=== PATIENT | male | born 1945 ===

== ENCOUNTER 2018-08-30 19:23 | Inpatient (IN) | payer MEDICARE, BC ==
[~2018-08-30] VITALS: Ht 190.5 cm; Wt 111.1 kg
[2018-08-30] MEDS ORDERED: Z GUARD REMEDY PASTE 57 GM TUBE TOP PRN (19:45)
[2018-08-30] MEDS ORDERED: ACET-2154 PO (19:55)
[2018-08-30] MEDS ORDERED: ZOLP5TAB2 PO (19:56)
[2018-08-30] MEDS ORDERED: CITA20TA19 PO (19:56)
[2018-08-30] MEDS ORDERED: LACT-246 PO (19:56)
[2018-08-30] MEDS ORDERED: OXYB5TAB11 PO (19:56)
[2018-08-30] MEDS ORDERED: PRED20TA PO (19:56)
[2018-08-30] MEDS ORDERED: HYDR-3326 PO (19:56)
[2018-08-30] MEDS ORDERED: MAG-55 PO (19:56)
[2018-08-30] MEDS ORDERED: MAGN400O6 PO (19:56)
[2018-08-30 20:00] VITALS: BP 103/49
--- NOTE | 2018-08-30 22:01 | NUR ---
Admitting this 73 y/o male from [facility] with diagnosis of COPD Exacerbation. AAO x 4, verbally responsive and able to make needs known. Denies pain or discomfort at this time. Breathing even and unlabored, no SOB or CP noted. Lungs clear to auscultation. Routine admission care done. Oriented to room and unit. Provided with urinal and bedside commode per pt's request. MRSA swab done and sent to lab. Skin intact, warm and dry to touch. Dr. Jimenez aware of pt admission. Paged MD Malik for med recon ([phone]), awaiting call back. All safety measures and fall precautions maintained. Call light and all personal belongings within reach. Will continue to monitor.
[2018-08-31 04:30] VITALS: BP 133/49
[2018-08-31 07:00] VITALS: BP 125/64
--- NOTE | 2018-08-31 09:14 | NUR ---
Received pt. on bed, comfortable in no distress. A/OX3 verbally responsive and able to make his needs known. Denies CP or SOB, tolerating 2LPM via NC, SpO2: 98%. All due medications administered as ordered and tolerated well. All pt. needs attended and met promptly. Safety measures in place. Call light and all frequently used items within pt. reach.
[2018-08-31] MEDS ORDERED: HYDROCODONE/APAP 5-325MG TABLET PO PRN (11:30)
[2018-08-31] MEDS ORDERED: MAGNESIUM HYDROXIDE 30 ML LIQUID UDC PO PRN (11:30)
[2018-08-31] MEDS ORDERED: ZOLPIDEM 5 MG TABLET PO PRN (11:30)
[2018-08-31] MEDS ORDERED: predniSONE 20 MG TABLET PO ONE (12:00)
[2018-08-31] MEDS: OXYBUTYNIN CHLORIDE 5 MG TABLET PO SCH ×2 (12:31→16:22)
[2018-08-31 16:03] VITALS: BP 110/59
[2018-08-31] MEDS: CITALOPRAM 20 MG TABLET PO SCH (16:22)
[2018-08-31] MEDS: ACETAMINOPHEN 325 MG TABLET PO PRN (16:23)
--- NOTE | 2018-08-31 18:25 | NUR ---
End of shift note: No significant change during this shift. No sign of acute distress or SOB was noted. Kept pt clean and dry throughout this shift. Safety measures maintained. All needs attended and met promptly. Bed in low position, brake on, side rails up x2 as an enabler. Call light and all frequently used items within pt. reach. Will endorse to next shift accordingly
--- NOTE | 2018-08-31 19:25 | NUR ---
Patient alert and oriented x 3-4. No C/O distress or SOB. On 2L of O2. Patient C/O pain in left toe. Loan Approver consult made. Side rails up bilaterally for safety. Call light and frequently used items within reach. Will continue to monitor.
[2018-08-31 19:59] VITALS: BP 137/70
[2018-08-31] MEDS: DOCUSATE SODIUM 100 MG CAPSULE PO SCH (20:19)
[2018-09-01 05:00] VITALS: BP 127/69
--- NOTE | 2018-09-01 06:49 | NUR ---
Patient slept on and off throughout the night. All due medications given-tolerated well. Urinal emptied multiple times during shift. Side rails up bilaterally for safety. Call light and frequently used items within reach. Will endorse to oncoming shift accordingly.
[2018-09-01 07:28] LABS: BASOPHILS % (AUTO) 0.7 % (0.0-2.0); EOSINOPHILS # (AUTO) 0.1 K/uL (0.0-0.7); EOSINOPHILS % (AUTO) 0.9 % (0.0-7.0); HEMATOCRIT 30.8 % (36.7-47.1); HEMOGLOBIN 9.9 g/dL (12.5-16.3); LYMPHOCYTES # (AUTO) 1.8 K/uL (20.0-40.0); LYMPHOCYTES % (AUTO) 32.4 % (20.5-51.5); MEAN CORPUSCULAR HEMOGLOBIN 28.7 uug (23.8-33.4); MEAN CORPUSCULAR HGB CONC 32 g/dL (32.5-36.3); MEAN CORPUSCULAR VOLUME 89.2 fL (73.0-96.2); MONOCYTES # (AUTO) 0.5 K/uL (2.0-10.0); MONOCYTES % (AUTO) 8.4 % (0.0-11.0); NEUTROPHILS # (AUTO) 3.2 K/uL (1.8-8.9); NEUTROPHILS % (AUTO) 57.6 % (38.5-71.5); PLATELET COUNT (AUTO) 115 K/uL (152-348); RED BLOOD CELL COUNT(AUTO) 3.45 MIL/uL (4.06-5.63); WHITE BLOOD COUNT (AUTO) 5.5 K/uL (3.6-10.2)
[2018-09-01 07:39] LABS: IRON, SERUM 43 ug/dL (50-175)
[2018-09-01 07:48] VITALS: BP 128/70
[2018-09-01 08:09] LABS: THYROID STIMULATING HORMONE 2.614 mIU/mL (0.358-3.740)
[2018-09-01 08:16] LABS: ALANINE AMINOTRANSFERASE 11 U/L (16-63); ALKALINE PHOSPHATASE 40 U/L (50-136); ASPARTATE AMINOTRANSFERASE 14 U/L (15-37); BILIRUBIN,TOTAL 0.2 mg/dL (0.2-1.0); CARBON DIOXIDE 28 mmol/L (21-32); CHLORIDE 109 mmol/L (98-107); CHOLESTEROL 147 mg/dL (<200); CREATININE 1.4 mg/dL (0.6-1.3); GLUCOSE 81 mg/dL (74-106); HDL CHOLESTEROL 44 mg/dL (40-60); MAGNESIUM 2.1 mg/dL (1.8-2.4); PHOSPHOROUS 3.9 mg/dL (2.5-4.9); POTASSIUM 4.4 mmol/L (3.5-5.1); TOTAL PROTEIN, SERUM 6.2 g/dL (6.4-8.2); TRIGLYCERIDES 49 MG/DL (30-150); UREA NITROGEN, BLOOD 28 mg/dL (7-18); URIC ACID 5.1 mg/dL (3.5-7.2)
[2018-09-01] MEDS: CITALOPRAM 20 MG TABLET PO SCH ×2 (08:43→16:26)
[2018-09-01] MEDS: predniSONE 10 MG TABLET PO SCH (08:43)
[2018-09-01] MEDS: OXYBUTYNIN CHLORIDE 5 MG TABLET PO SCH ×3 (08:43→16:26)
[2018-09-01] MEDS ORDERED: predniSONE 20 MG TABLET PO SCH (09:00)
--- NOTE | 2018-09-01 12:57 | NUR ---
Patient continue therapy for ambulation, ADL, transfer and muscle weakness. not in distress. EKG done. relayed result to MD Smith with no new order. no complaint of pain/discomfort noted. will continue monitor
--- NOTE | 2018-09-01 15:09 | NUR ---
Patient verbalize with social media developer that he wants to talk to social media developer regarding change of anti depressant medication due to possible side effect. the bond underwriter confirmed with the patient, MD Smith notified, MD Bautista ( psychiatrist) aware. will continue monitor
[2018-09-01 16:27] VITALS: BP 126/65
--- NOTE | 2018-09-01 16:50 | NUR ---
Refrigeration Service Inspector assessment completed today.
--- NOTE | 2018-09-01 17:38 | NUR ---
Patient seen and examined by MD Batuista ( Psych) with ordered change citalopram to Escitalopram 10mg. Addendum: 09/01/18 at 4384 by SUSANNE KNUTSON RN RN Change anti depression requested by Patient
[2018-09-01] MEDS: DOCUSATE SODIUM 100 MG CAPSULE PO SCH (20:10)
[2018-09-01] MEDS: ESCITALOPRAM OXALATE 10 MG TABLET PO SCH (20:10)
[2018-09-01 20:35] VITALS: BP 117/56
--- NOTE | 2018-09-01 20:52 | NUR ---
Patient alert and oriented x 3-4. No C/O distress or SOB. On 2L of O2. Urinal emptied. First dose of 20 mg Lexapro given. Tolerated well. Side rails up bilaterally for safety. Call light and frequently used items within reach. Will continue to monitor.
[2018-09-02 05:58] VITALS: BP 128/64
--- NOTE | 2018-09-02 06:36 | NUR ---
Patient slept well during the night. All due medications given-tolerated well. no C/O pain, SOB, or distress noted. Side rails up bilaterally for safety. Call light and frequently used items within reach. Will endorse to oncoming shift accordingly.
[2018-09-02 07:49] VITALS: BP 136/68
[2018-09-02] MEDS: predniSONE 10 MG TABLET PO SCH (08:33)
[2018-09-02] MEDS: OXYBUTYNIN CHLORIDE 5 MG TABLET PO SCH ×3 (08:33→16:21)
[2018-09-02] MEDS: ACETAMINOPHEN 325 MG TABLET PO PRN (12:40)
--- NOTE | 2018-09-02 13:30 | NUR ---
INDIVIDUALIZED OVERALL PLAN OF CARE
--- NOTE | 2018-09-02 14:15 | NUR ---
Patient continue therapy for ambulation, ADL, transfer, muscle weakness. Continue pain management with good effect. New lexapro 40mg HS for anti depression. tolerated well. no complaints voiced. not in distress. will continue monitor
[2018-09-02 16:20] VITALS: BP 121/57
[2018-09-02 20:17] VITALS: BP 96/62
[2018-09-02 20:27] VITALS: BP 130/66
[2018-09-02] MEDS: DOCUSATE SODIUM 100 MG CAPSULE PO SCH (21:00)
[2018-09-02] MEDS: ESCITALOPRAM OXALATE 10 MG TABLET PO SCH (21:01)
[2018-09-03 06:36] VITALS: BP 125/61
[2018-09-03 07:40] VITALS: BP 124/65
--- NOTE | 2018-09-03 09:00 | NUR ---
Received patient, awake, alert x3. Not in any form of distress. On O2 at 2lpm, sating well. No SOB or chest pains noted. Denies any pain at the moment. Morning care done.
[2018-09-03] MEDS: predniSONE 10 MG TABLET PO SCH (09:28)
[2018-09-03] MEDS: OXYBUTYNIN CHLORIDE 5 MG TABLET PO SCH ×3 (09:28→17:46)
[2018-09-03 10:16] LABS: *OCCULT BLOOD STOOL NEGATIVE (NEGATIVE)
--- NOTE | 2018-09-03 13:30 | NUR ---
INTERDISCIPLINARY TEAM CONFERENCE
--- NOTE | 2018-09-03 15:05 | NUR ---
Dr. Singh, made aware of cardio consult, informed about patient symptoms. said patient will be seen tomorrow.
[2018-09-03 15:20] VITALS: BP 113/63
[2018-09-03 20:56] VITALS: BP 129/56
[2018-09-03] MEDS: DOCUSATE SODIUM 100 MG CAPSULE PO SCH (21:00)
[2018-09-03] MEDS: ESCITALOPRAM OXALATE 10 MG TABLET PO SCH (21:22)
--- NOTE | 2018-09-04 03:53 | NUR ---
PATIENT ALERT, NO SOB NO CHEST PAIN NOTED, CONT OXYGEN 2LPM WITH SAT. 99%. PATIENT SLEPT MOST OF THE NIGHT, KEPT CLEAN DRY AND COMFORTABLE, CALL LIGHT WITHIN REACH.
[2018-09-04 05:43] VITALS: BP 112/55
[2018-09-04 07:22] LABS: BASOPHILS % (AUTO) 0.7 % (0.0-2.0); EOSINOPHILS # (AUTO) 0.2 K/uL (0.0-0.7); EOSINOPHILS % (AUTO) 3.5 % (0.0-7.0); HEMOGLOBIN 10.9 g/dL (12.5-16.3); LYMPHOCYTES # (AUTO) 1.9 K/uL (20.0-40.0); LYMPHOCYTES % (AUTO) 30.7 % (20.5-51.5); MEAN CORPUSCULAR HEMOGLOBIN 28.9 uug (23.8-33.4); MEAN CORPUSCULAR HGB CONC 32 g/dL (32.5-36.3); MONOCYTES # (AUTO) 0.7 K/uL (2.0-10.0); MONOCYTES % (AUTO) 10.8 % (0.0-11.0); NEUTROPHILS # (AUTO) 3.4 K/uL (1.8-8.9); NEUTROPHILS % (AUTO) 54.3 % (38.5-71.5); PLATELET COUNT (AUTO) 138 K/uL (152-348); RED BLOOD CELL COUNT(AUTO) 3.78 MIL/uL (4.06-5.63); WHITE BLOOD COUNT (AUTO) 6.2 K/uL (3.6-10.2)
[2018-09-04 07:42] LABS: CARBON DIOXIDE 30 mmol/L (21-32); CHLORIDE 107 mmol/L (98-107); CREATININE 1.5 mg/dL (0.6-1.3); GLUCOSE 92 mg/dL (74-106); MAGNESIUM 2.2 mg/dL (1.8-2.4); PHOSPHOROUS 3.9 mg/dL (2.5-4.9); POTASSIUM 4.6 mmol/L (3.5-5.1); UREA NITROGEN, BLOOD 23 mg/dL (7-18)
[2018-09-04 08:00] VITALS: BP 115/65
[2018-09-04] MEDS: OXYBUTYNIN CHLORIDE 5 MG TABLET PO SCH ×3 (08:32→16:36)
[2018-09-04 16:00] VITALS: BP 109/63
[2018-09-04 19:45] VITALS: BP 108/58
[2018-09-04] MEDS: DOCUSATE SODIUM 100 MG CAPSULE PO SCH (21:00)
[2018-09-04] MEDS: ESCITALOPRAM OXALATE 10 MG TABLET PO SCH (21:01)
[2018-09-05 06:29] VITALS: BP 116/62
--- NOTE | 2018-09-05 06:38 | NUR ---
PATIENT SLEPT MOST OF THE NIGHT, PATIENT REFUSED COLACE LAST NIGHT, PATIENT SAID HE TWO BOWEL MOVEMENT DAY BEFORE YESTERDAY, AND I GO BM EVERY OTHER DAY. PATIENT NO SOB NO CHEST PAIN, CONT OXYGEN 2LPM NO DESATURATION NOTED. CONT TO MONITOR.
[2018-09-05] MEDS: OXYBUTYNIN CHLORIDE 5 MG TABLET PO SCH ×3 (08:23→16:12)
[2018-09-05 09:01] VITALS: BP 111/61
--- NOTE | 2018-09-05 09:39 | NUR ---
Received pt. on bed, comfortable in no distress. A/OX3 verbally responsive and able to make his needs known. Denies CP or SOB, tolerating 2LPM via NC, SpO2: 99%. All due medications administered as ordered and tolerated well. All pt. needs attended and met promptly. Safety measures in place. Call light and all frequently used items within pt. reach.
[2018-09-05 18:00] VITALS: BP 112/61
--- NOTE | 2018-09-05 18:38 | NUR ---
End of shift note: No sign of acute distress or SOB was noted. Kept pt clean and dry throughout this shift. Safety measures maintained. All needs attended and met promptly. Bed in low position, brake on, side rails up x2 as an enabler. Call light and all frequently used items within pt. reach. Will endorse to next shift accordingly
--- NOTE | 2018-09-05 19:30 | NUR ---
Patient alert and oriented x 3-4. No C/O distress or SOB. On 2L of O2. Patient request evening does of Colace to be held due to large BM. Information verified with morning RN. Will hold medication. Side rails up bilaterally for safety. Call light and frequently used items within reach. Will continue to monitor.
[2018-09-05] MEDS: ESCITALOPRAM OXALATE 10 MG TABLET PO SCH (20:40)
[2018-09-05] MEDS: DOCUSATE SODIUM 100 MG CAPSULE PO SCH (20:40)
[2018-09-05 21:55] VITALS: BP 114/55
[2018-09-06 04:30] VITALS: BP 115/56
--- NOTE | 2018-09-06 06:45 | NUR ---
Patient slept well during the night. Colace held per patient request and large BM noted during previous day shift. No C/O pain, SOB, or distress noted. Side rails up bilaterally for safety. Call light and frequently used items within reach. Will endorse to oncoming shift accordingly.
--- NOTE | 2018-09-06 07:55 | NUR ---
Patient noted resting in bed with eyes closed, arouses easily, denies pain at this time, no signs of distress noted, call light in reach, continues on 2 liters nasal cannula, bed locked and in lowest position
[2018-09-06 08:00] VITALS: BP 111/50
[2018-09-06] MEDS: OXYBUTYNIN CHLORIDE 5 MG TABLET PO SCH ×3 (08:09→17:11)
[2018-09-06 11:08] LABS: *BILIRUBIN,URIN NEGATIVE (NEGATIVE); *BLOOD, URINE NEGATIVE (NEGATIVE); *CLARITY,URINE CLEAR (CLEAR); *COLOR,URINE YELLOW (YELLOW); *KETONES,URINE NEGATIVE (NEGATIVE); *UROBILINOGEN,URINE 0.2 E.U./dl (NORMAL); LEUKOCYTE ESTERASE ,URINE NEGATIVE (NEGATIVE); NITRITE, URINE NEGATIVE (NEGATIVE); UGLUCOSE NEGATIVE (NEGATIVE)
[2018-09-06 11:20] LABS: WBC,URINE 0-3 /HPF (0-3)
[2018-09-06 11:24] LABS: *CREATININE,URINE 158.8 mg/dL (30-125); *URINE TOTAL PROTEIN RANDOM 17.8 mg/dL (<150/24HR)
[2018-09-06 16:00] VITALS: BP 108/59
--- NOTE | 2018-09-06 18:13 | NUR ---
urine sample collected this shift and sent to lab
[2018-09-06] MEDS: DOCUSATE SODIUM 100 MG CAPSULE PO SCH (20:47)
[2018-09-06] MEDS: ESCITALOPRAM OXALATE 10 MG TABLET PO SCH (20:47)
[2018-09-06 20:59] VITALS: BP 104/60
--- NOTE | 2018-09-07 01:18 | NUR ---
Received pt in bed, AAO x 4 resting comfortably on the phone speaking to a family member. No acute distress noted. Verbally responsive and able to make needs known. Denies pain or discomfort at this time. All due medications given as ordered, tolerated well. On 2LPM NC, tolerated well. Refused colace 200mg this shift due to loose stool. Explained risks and benefits, offered x 3 but refused. Pt verbalized understanding. Bed locked, in lowest position with side rails up x 2. All safety measures and fall precautions maintained. Call light and all personal belongings within reach. Will continue to monitor.
[2018-09-07 04:45] VITALS: BP 104/54
[2018-09-07 07:03] LABS: BASOPHILS % (AUTO) 0.7 % (0.0-2.0); EOSINOPHILS # (AUTO) 0.4 K/uL (0.0-0.7); EOSINOPHILS % (AUTO) 7.3 % (0.0-7.0); HEMATOCRIT 33.3 % (36.7-47.1); HEMOGLOBIN 10.8 g/dL (12.5-16.3); LYMPHOCYTES # (AUTO) 1.6 K/uL (20.0-40.0); LYMPHOCYTES % (AUTO) 31.4 % (20.5-51.5); MEAN CORPUSCULAR HGB CONC 32 g/dL (32.5-36.3); MEAN CORPUSCULAR VOLUME 89.6 fL (73.0-96.2); MONOCYTES # (AUTO) 0.7 K/uL (2.0-10.0); NEUTROPHILS # (AUTO) 2.4 K/uL (1.8-8.9); NEUTROPHILS % (AUTO) 47.6 % (38.5-71.5); PLATELET COUNT (AUTO) 144 K/uL (152-348); RED BLOOD CELL COUNT(AUTO) 3.72 MIL/uL (4.06-5.63); WHITE BLOOD COUNT (AUTO) 5.1 K/uL (3.6-10.2)
[2018-09-07 07:22] LABS: ALANINE AMINOTRANSFERASE 15 U/L (16-63); ALKALINE PHOSPHATASE 47 U/L (50-136); ASPARTATE AMINOTRANSFERASE 14 U/L (15-37); BILIRUBIN,TOTAL 0.3 mg/dL (0.2-1.0); CARBON DIOXIDE 26 mmol/L (21-32); CHLORIDE 106 mmol/L (98-107); CREATININE 1.5 mg/dL (0.6-1.3); GLUCOSE 106 mg/dL (74-106); PHOSPHOROUS 3.4 mg/dL (2.5-4.9); POTASSIUM 4.3 mmol/L (3.5-5.1); TOTAL PROTEIN, SERUM 6.2 g/dL (6.4-8.2); UREA NITROGEN, BLOOD 24 mg/dL (7-18)
[2018-09-07 08:00] VITALS: BP 98/58
[2018-09-07] MEDS: OXYBUTYNIN CHLORIDE 5 MG TABLET PO SCH ×3 (09:21→17:47)
[2018-09-07] MEDS: ACETAMINOPHEN 325 MG TABLET PO PRN (14:33)
[2018-09-07 16:00] VITALS: BP 112/63
--- NOTE | 2018-09-07 19:35 | NUR ---
Patient received in bed, trying to sleep. Alert and oriented x 4. No C/O distress or SOB. On 2L of O2. Patient request evening does of Colace to be held. Will hold medication. Side rails up bilaterally for safety. Call light and frequently used items within reach. Will continue to monitor.
[2018-09-07] MEDS ORDERED: METHYL SALICYLATE/MENTHOL CREAM 28 GM TUBE TOP PRN (19:45)
[2018-09-07] MEDS: DOCUSATE SODIUM 100 MG CAPSULE PO SCH (20:26)
[2018-09-07] MEDS: ESCITALOPRAM OXALATE 10 MG TABLET PO SCH (20:26)
[2018-09-07 22:19] VITALS: BP 126/73
[2018-09-08 05:19] VITALS: BP 108/54
--- NOTE | 2018-09-08 06:47 | NUR ---
Patient slept well during the night. No C/O pain, SOB, or distress noted. Side rails up bilaterally for safety. Call light and frequently used items within reach. Will endorse to oncoming shift accordingly.
--- NOTE | 2018-09-08 07:45 | NUR ---
Patient awake, alert, in bed, not in any form of distress. He denies any pain or discomfort. Call light placed within reach. Assisted with his needs.
[2018-09-08 08:00] VITALS: BP 120/59
[2018-09-08] MEDS: OXYBUTYNIN CHLORIDE 5 MG TABLET PO SCH ×3 (09:17→17:12)
[2018-09-08 17:31] VITALS: BP 125/59
--- NOTE | 2018-09-08 19:40 | NUR ---
Patient received in bed-watching TV. Alert and oriented x 3-4. No C/O distress or SOB. On 2L of O2. Patient request evening does of Colace to be held due to large BM today. Information verified with morning RN. Will hold medication. Side rails up bilaterally for safety. Call light and frequently used items within reach. Will continue to monitor.
[2018-09-08] MEDS: ESCITALOPRAM OXALATE 10 MG TABLET PO SCH (20:39)
[2018-09-08] MEDS: DOCUSATE SODIUM 100 MG CAPSULE PO SCH (20:39)
[2018-09-08 21:37] VITALS: BP 104/55
[2018-09-09 04:54] VITALS: BP 113/55
[2018-09-09] MEDS: OXYBUTYNIN CHLORIDE 5 MG TABLET PO SCH ×3 (08:59→16:29)
[2018-09-09 09:12] VITALS: BP 114/59
[2018-09-09 17:32] VITALS: BP 105/57
[2018-09-09 19:59] VITALS: BP 108/60
--- NOTE | 2018-09-09 20:00 | NUR ---
RECEIVED REPORT FROM SOHA NOLAN. PT IS A/Ox3-4, AND IS STABLE. WILL CONTINUE TO MONITOR. Collin BOWMAN RN
[2018-09-09] MEDS: DOCUSATE SODIUM 100 MG CAPSULE PO SCH (21:00)
[2018-09-09] MEDS: ESCITALOPRAM OXALATE 10 MG TABLET PO SCH (21:45)
--- NOTE | 2018-09-10 | NUR ---
PT IS RESTING COMFORTABLY WITH NO SIGNS OF DISTRESS. Collin BOWMAN RN
[2018-09-10 05:53] VITALS: BP 126/72
--- NOTE | 2018-09-10 07:28 | NUR ---
REPORT GIVEN TO SOHA LANGSTON. PT IS STABLE AND ALERT, RESTING IN BED. PT HAD A LARGE WATEERY BOWEL MOVEMENT LAST NIGHT. PT ALSO REFUSED COLACE DUE TO FREQUENT BOWEL MOVEMENTS. Collin BOWMAN RN
[2018-09-10 08:11] VITALS: BP 117/63
[2018-09-10] MEDS: OXYBUTYNIN CHLORIDE 5 MG TABLET PO SCH ×3 (09:09→17:48)
[2018-09-10 16:54] VITALS: BP 113/63
[2018-09-10] MEDS: IV NS 1000 ML 1,000 ML IV SCH ×2 (17:47→20:01)
--- NOTE | 2018-09-10 17:49 | NUR ---
REFUSED TO HAVE IV STARTED AND IVF HE STATES HE IS GOING HOME TOMORROW AND HE DOES NOT WANT TO TAKE AN IV STICK AND HAVE THE IV FOR ONE DAY. STATES HE HAS BEEN INCREASING HIS FL INTAKE AND WILL CONTINUE
--- NOTE | 2018-09-10 20:01 | NUR ---
Received pt in bed, AAO x 4 reading a book. No acute distress noted. Verbally responsive and able to make needs known. Denies pain or discomfort. On 2LPM NC, tolerating well. Refusing IV hydration and IV insertion, stating "I am going home tomorrow, I don't need it, I will drink more water." Also refusing Colace 200mg due to loose stool. Explained risks and benefits, offered x 3. All safety measures and fall precautions maintained. Call light and all personal belongings within reach. Encourage increase PO fluid intake. Will continue to monitor.
[2018-09-10 20:40] VITALS: BP 108/62
[2018-09-10] MEDS: DOCUSATE SODIUM 100 MG CAPSULE PO SCH (20:57)
[2018-09-10] MEDS: ESCITALOPRAM OXALATE 10 MG TABLET PO SCH (20:58)
[2018-09-11] MEDS: IV NS 1000 ML 1,000 ML IV SCH ×2 (05:48→16:45)
--- NOTE | 2018-09-11 05:48 | NUR ---
Refusing IVF. Explained risks and benefits, offered x 3. Encouraged to increase PO fluid intake. Pt verbalized understanding. Safety maintained. Call light within reach. Will continue to monitor.
[2018-09-11 05:51] VITALS: BP 118/72
[2018-09-11 07:50] VITALS: BP 118/62
[2018-09-11] MEDS: OXYBUTYNIN CHLORIDE 5 MG TABLET PO SCH ×3 (10:25→17:28)
--- NOTE | 2018-09-11 17:25 | NUR ---
PICKED UP BY [facility] FOR TRANSPORT TO HOME. D/C INSTRUCTIONS GIVEN VERBALIZED UNDERSTANDING. D/C ORDER ON FILE. SKIN PICS TAKEN. VSS [id number] 96% 2L O2
== END 2018-09-11 17:00 | disposition home health service (06) | DRG 947 ==
PROVIDERS: ADMIT Physical Medicine & Rehabilitation Pain Medicine; ATTEND Physical Medicine & Rehabilitation Pain Medicine
DX: R53.81 Other malaise (principal); N17.0 Acute kidney failure with tubular necrosis; J44.9 Chronic obstructive pulmonary disease, unspecified; D63.8 Anemia in other chronic diseases classified elsewhere; E66.9 Obesity, unspecified; Z68.30 Body mass index [BMI] 30.0-30.9, adult; E03.9 Hypothyroidism, unspecified; F32.9 Major depressive disorder, single episode, unspecified; N32.81 Overactive bladder; Z86.718 Personal history of other venous thrombosis and embolism; Z85.528 Personal history of other malignant neoplasm of kidney; Z90.13 Acquired absence of bilateral breasts and nipples; Z90.5 Acquired absence of kidney; Z99.81 Dependence on supplemental oxygen; R53.1 Weakness; N18.9 Chronic kidney disease, unspecified; I50.9 Heart failure, unspecified; J84.10 Pulmonary fibrosis, unspecified; Z90.49 Acquired absence of other specified parts of digestive tract; Z95.828 Presence of other vascular implants and grafts; K80.20 Calculus of gallbladder without cholecystitis without obstruction; Z88.2 Allergy status to sulfonamides; Z65.5 Exposure to disaster, war and other hostilities; Z77.098 Contact with and (suspected) exposure to other hazardous, chiefly nonmedicinal, chemicals; Z87.891 Personal history of nicotine dependence; Z80.3 Family history of malignant neoplasm of breast
CPT/HCPCS: 36415; 71045; 83550; 83735; 84100; 84156; 84300; 84443; 84550; 85025; 92523; 92526; 92610; 93005; 97110; 97112; 97116; 97530; 97535; J7512